=== PATIENT | female | born 1940 | race Caucasian/White ===

== ENCOUNTER → 2023-08-21 06:42 | Outpatient (REF) | payer OTHER, SELFPAY ==
[2023-08-21 07:51] LABS: Blood Urea Nitrogen 18 mg/dl (7-17); Calcium 9.4 mg/dl (8.4-10.2); Carbon Dioxide 29 mmol/L (22-30); Chloride 105 mmol/L (98-107); Glucose 113 mg/dl (70-99); HDL Cholesterol 66 mg/dl; LDL Cholesterol, Calculated 127 mg/dl; Potassium 4.5 mmol/L (3.5-5.1); Sodium 138 mmol/L (135-145); Total Cholesterol 227 mg/dl (50-199); Triglyceride 170 mg/dl (10-149); Very Low Density Lipoprotein 34 mg/dl (0-30); eGFR > 60.00
[2023-08-21 09:27] LABS: Glycohemoglobin (HgbA1c) 6.1 % (4.0-5.6)
== END ==
LOC: REG 06:42
PROVIDERS: ATTENDING PHYSICIAN Emergency Medicine
DX: E78.2 Mixed hyperlipidemia (principal); R73.03 Prediabetes
CPT/HCPCS: 36415; 80048; 80061; 83036

== ENCOUNTER → 2023-10-23 06:52 | Outpatient (REF) | payer OTHER, SELFPAY | LOC: RAD 06:52 | PROVIDERS: ATTENDING PHYSICIAN Emergency Medicine | DX: M99.01 Segmental and somatic dysfunction of cervical region (principal) | CPT/HCPCS: 72050 ==

== ENCOUNTER → 2024-03-04 06:44 | Outpatient (REF) | payer OTHER, SELFPAY ==
[2024-03-04 08:04] LABS: Urine Albumin Negative (Neg - Trace); Urine Bilirubin Negative (Negative); Urine Character Clear (Clear); Urine Color Yellow; Urine Glucose Negative (Negative); Urine Ketone Negative (Negative); Urine Leukocyte 2+ (Negative); Urine Nitrite Negative (Negative); Urine Occult Blood Negative (Negative); Urine Urobilinogen Negative (Neg - 1+)
[2024-03-04 08:15] LABS: % Basophils 0.2 % (0-2); % Eosinophils 3.2 % (0-6); % Immature Granulocytes 0.2 % (0-0.5); % Lymphocytes 32.9 % (20.5-51.1); % Monocytes 9.8 % (1.7-9.3); % Neutrophils 53.7 % (42.2-75.2); Absolute Eosinophils 0.1 10^3/uL (0-0.7); Absolute Lymphocytes 1.3 10^3/uL (1.2-3.4); Absolute Monocytes 0.4 10^3/uL (0.1-0.6); Absolute Neutrophils 2.2 10^3/uL (1.4-6.5); Hematocrit 39.9 % (37.0-47.0); Hemoglobin 13.4 g/dL (12.0-16.0); Mean Corp Hgb Conc. 33.6 g/dL (33.0-37.0); Mean Corpuscular Hgb 31.2 pg (27.0-31.0); Mean Corpuscular Volume 92.8 fL (81.0-99.0); Mean Platelet Volume 10.6 fL (7.4-10.4); Nucleated Red Blood Cells % 0 %; Platelet Count 191 10^3/uL (130-400); Red Cell Dist. Width 13.4 % (11.5-14.5); White Blood Cell Count 4.1 10^3/uL (4.8-10.8)
[2024-03-04 08:34] LABS: Urine Mucus Few; Urine Squamous Cell 21-25 /LPF (Few)
[2024-03-04 08:36] LABS: Urine Bacteria Few (Negative); Urine Red Blood Cell 0-2 /HPF (0-2)
[2024-03-04 08:47] LABS: Glycohemoglobin (HgbA1c) 5.8 % (4.0-5.6)
[2024-03-04 09:16] LABS: TSH Reflex To Free T4 1.77 uIU/ml (0.47-4.68)
[2024-03-04 09:32] LABS: ALT (SGPT) 25 U/L (0-35); AST (SGOT) 30 U/L (14-36); Albumin 4.5 g/dl (3.5-5.0); Alkaline Phosphatase 69 U/L (38-126); Blood Urea Nitrogen 28 mg/dl (7-17); Calcium 9.6 mg/dl (8.4-10.2); Carbon Dioxide 21 mmol/L (22-30); Chloride 104 mmol/L (98-107); Glucose 118 mg/dl (70-99); HDL Cholesterol 60 mg/dl; LDL Cholesterol, Calculated 142 mg/dl; Potassium 4.8 mmol/L (3.5-5.1); Sodium 141 mmol/L (135-145); Total Bilirubin 0.5 mg/dl (0.2-1.3); Total Cholesterol 223 mg/dl (50-199); Total Protein 7.1 g/dl (6.3-8.2); Triglyceride 109 mg/dl (10-149); Very Low Density Lipoprotein 21 mg/dl (0-30); eGFR > 60.00
== END ==
LOC: REG 06:44
PROVIDERS: ATTENDING PHYSICIAN Emergency Medicine
DX: Z00.00 Encounter for general adult medical examination without abnormal findings (principal); R73.03 Prediabetes; M85.89 Other specified disorders of bone density and structure, multiple sites; I10 Essential (primary) hypertension; E78.2 Mixed hyperlipidemia
CPT/HCPCS: 36415; 80053; 80061; 81003; 81015; 83036; 84443; 85025

== ENCOUNTER 2024-03-30 04:18 | Emergency (ER) | payer OTHER, SELFPAY ==
[2024-03-30 04:21] VITALS: BP 187/84; BMI 32.8
[2024-03-30 04:28] VITALS: BP 187/84
--- NOTE | 2024-03-30 04:51 | ED.GENMED ---
History of Present Illness
<LAURA De Anda - Last Filed: 03/30/24 06:44>
General
Chief Complaint: Musculo-Skeletal Complaint
Source: patient
Exam Limitations: none
Time Seen by Provider: 03/30/24 04:30
Nursing documentation reviewed up to this point in time: agreed with
History of Present Illness
History of Present Illness:
Patient is a 83 yo F w/ PMH of cervical spinal stenosis who presents to the ED complaining of upper back pain. Reports pain started yesterday 1-2hrs after PT. Has been in PT for spinal stenosis since December w/o improvement. Reports baseline neck pain
but states this is worse. Describes pain as sharp and rates it 03/21. Reports it is constant and worse w/ movement. Took muscle relaxer w/o relief. Reports pain started to radiate down arms a few hours ago which prompted her to call EMS. L>R. Denies
numbness/tingling and decreased ROM.
Review of Systems
<LAURA De Anda - Last Filed: 03/30/24 06:44>
Review of Systems
Constitutional: Denies fever, fatigue or chills
Respiratory: Denies trouble breathing
Cardiac: Denies chest pain or syncope
ABD/GI: Denies abdominal pain, nausea, vomiting, diarrhea or constipated
: Denies dysuria or urgency
Musculoskeletal: Reports joint pain, muscle pain, muscle stiffness, neck pain and back pain; Denies joint swelling or edema
Neurological: Denies dizzy, headache, weakness or numbness
Phy Exam
<LAURA De Anda - Last Filed: 03/30/24 06:44>
General Physical Exam
General Presentation: mild distress
General age: appears stated age
General Skin: warm
General Mental: alert
Cardiovascular Exam
Cardiovascular Exam: regular rate/rhythm, no edema, no gallop and no murmur
Pulmonary Exam
Pulmonary Exam: lungs clear, no respiratory distress, no rales, no crackles, no rhonchi and no wheezing
Motor
Bilateral upper extremities: 5
Musculoskeletal Exam
Musculoskeletal Exam: other (No tenderness to palpation of neck, upper back, or shoulder. Restricted neck ROM. Painful shoulder ROM. No swelling or erythema noted. )
Course
<LAURA De Anda - Last Filed: 03/30/24 06:44>
Orders/Labs/Results
Orders:
Orders
03/30/24 04:20
EKG [Electrocardiogram (*1)] Urgent
Reason for Study: Chest Pain
Other Reason for Exam: pain in bt shoulder blades radiating to arms
03/30/24 04:21
EKG- Treatment ONCE
03/30/24 05:02
Ketorolac [Toradol] 15 mg IV NOW STA
diazePAM [Valium Injection] 2 mg IV NOW STA
03/30/24 05:11
Basic Metabolic Panel Urgent
Complete Blood Count/With Diff Urgent
Troponin I Urgent
03/30/24 06:03
Ketorolac [Toradol] 15 mg IV NOW STA
diazePAM [Valium Injection] 2 mg IV NOW STA
Abnormal Lab Results
03/30/24
05:11
Absolute Neuts (auto) 7.2 H 10^3/uL
(1.4-6.5)
Absolute Lymphs (auto) 1.1 L 10^3/uL
(1.2-3.4)
Absolute Monos (auto) 0.7 H 10^3/uL
(0.1-0.6)
Neutrophils % 78.9 H %
(42.2-75.2)
Lymphocytes % 12.4 L %
(20.5-51.1)
Glucose 149 H mg/dl
(70-99)
03/30/24 05:11
03/30/24 05:11
Vital Signs
Initial and Last Documented VS:
Initial Vital Signs
Temp Pulse Resp BP Pulse Ox
97.7 F 94 14 187/84 96
03/30/24 04:21 03/30/24 04:21 03/30/24 04:21 03/30/24 04:21 03/30/24 04:21
Last Documented Vital Signs
Temp Pulse Resp BP Pulse Ox
97.7 F 89 23 162/85 96
03/30/24 04:21 03/30/24 06:30 03/30/24 06:30 03/30/24 06:30 03/30/24 04:21
<Yesenia Morel, DO - Last Filed: 03/30/24 06:36>
Orders/Labs/Results
Orders:
Orders
03/30/24 04:20
EKG [Electrocardiogram (*1)] Urgent
Reason for Study: Chest Pain
Other Reason for Exam: pain in bt shoulder blades radiating to arms
03/30/24 04:21
EKG- Treatment ONCE
03/30/24 05:02
Ketorolac [Toradol] 15 mg IV NOW STA
diazePAM [Valium Injection] 2 mg IV NOW STA
03/30/24 05:11
Basic Metabolic Panel Urgent
Complete Blood Count/With Diff Urgent
Troponin I Urgent
03/30/24 06:03
Ketorolac [Toradol] 15 mg IV NOW STA
diazePAM [Valium Injection] 2 mg IV NOW STA
Abnormal Lab Results
03/30/24
05:11
Absolute Neuts (auto) 7.2 H 10^3/uL
(1.4-6.5)
Absolute Lymphs (auto) 1.1 L 10^3/uL
(1.2-3.4)
Absolute Monos (auto) 0.7 H 10^3/uL
(0.1-0.6)
Neutrophils % 78.9 H %
(42.2-75.2)
Lymphocytes % 12.4 L %
(20.5-51.1)
Glucose 149 H mg/dl
(70-99)
03/30/24 05:11
03/30/24 05:11
Vital Signs
Initial and Last Documented VS:
Initial Vital Signs
Temp Pulse Resp BP Pulse Ox
97.7 F 94 14 187/84 96
03/30/24 04:21 03/30/24 04:21 03/30/24 04:21 03/30/24 04:21 03/30/24 04:21
Last Documented Vital Signs
Temp Pulse Resp BP Pulse Ox
97.7 F 89 23 162/85 96
03/30/24 04:21 03/30/24 06:30 03/30/24 06:30 03/30/24 06:30 03/30/24 04:21
<Yesenia Morel DO - Last Filed: 03/30/24 06:36>
*Pulse Oximetry
Patient hypoxic: no
*EKG
Interpreted by ED Provider?: Yes
Interpretation: normal
Comparison EKG: no changes (Unchanged from previous September 2020)
Rate: normal
Rhythm: sinus
Denhoff: normal axis
Interval: normal interval
QRS Pattern: normal QRS
Ischemia: no ischemia
*Steam Presser Interpretation
Rate: normal
Interpretation: normal
Rhythm: sinus
*Critical Care Note
Total Time (30-74mins, 75-104mins- exclusive of procedures): Not Applicable
<LAURA De Anda - Last Filed: 03/30/24 06:44>
Update Note
Update Note:
03/30/24 5:50 am - Pt reports feeling 30-40% better. She is able to relax w/o pain at rest but continues to have pain w/ movement.
ED Attending Note
<LAURA De Anda - Last Filed: 03/30/24 06:44>
-
Portions of this chart may have been created with voice recognition software.� Occasional wrong word or��sound alike� substitutions may have occurred due to the inherent limitations of voice recognition software.
<Yeseina Morel DO - Last Filed: 03/30/24 06:36>
ED Attending Note
Patient seen and examined by attending physician: Yes
I performed the substantive portion of visit, reviewed & personally made and approve the management plan that is documented in note by myself or HIRA.: Yes
ED Attending Note:
This is an 83-year-old woman with history of hypertension, GERD, cervical disc disease with chronic posterior neck pain for which she follows with physical therapy over the past several months. She was feeling well after her last physical therapy
treatment yesterday morning but then developed some upper back ache that began yesterday afternoon, persistent and worsening throughout the evening with now intermittent radiation of pain down her arms. She denies chest pain, no weakness or
numbness, no headache, no fever no chills. Upper back pain radiates to her posterior neck but feels different from her usual posterior neck pain.
She followed up with her orthopedist last week and was prescribed tizanidine which she has been taking throughout the week without relief. She does take ibuprofen as well as Tylenol generally twice per day with last dose yesterday afternoon.
She has not had a fall, no shortness of breath. Pain is worse with movement of her head/movement of her neck and worse with raising her arms. Improves with sitting/lying still.
GENERAL: 83-year-old woman appears younger than stated age, bright and alert, pleasant, appears in no acute distress. Lying near sitting up on stretcher, holding head in neutral position, resistant to move. Her son is accompanying.
EYE: pupils equal and reactive. anicteric
NECK: Supple, no midline bony tenderness, moderate tenderness lower paracervical region left greater than right with moderate palpable muscle spasm more so left than right. Markedly limited cervical range of motion especially bilateral rotation,
flexion related to pain. No meningismus, no significant adenopathy.
ENT: oral mucosa is moist. No rhinorrhea.
CARDIAC: Regular rate and rhythm. no murmur.
LUNGS: Clear breath sounds bilaterally, no acute respiratory distress, no wheezes/rales/rhonchi
ABDOMEN: Soft, nondistended, without focal tenderness, no r/g, no cvat. normoactive BS.
BACK: No midline bony tenderness. There is moderate tenderness and palpable muscular ropiness left superior trapezius as well as tenderness along the left rhomboid musculature. Palpation seems to exactly reproduce patient's pain complaint.
NEUROLOGICAL: Alert and oriented x3, no focal neuro deficits. Motor strength is 5/5 bilaterally. Gross sensation is intact.
SKIN: Warm and dry, normal color, skin intact. No rash.
MUSCULOSKELETAL: No C/C/E. peripheral pulses are full and equal b/l. No palpable tenderness.
PSYCH: Normal and appropriate interaction.
History and exam most consistent with musculoskeletal upper back pain with palpable muscle spasm of distal cervical, left trapezius and left rhomboid musculature.
Complains of radiation of pain to her arms but no focal neurodeficits.
Must consider ACS thus will check EKG and will check labs, troponin.
Patient mitts to slow onset of pain, exacerbated with movement, not consistent with aortic dissection, PE, pneumonia.
Will give an IV dose of Toradol and Valium.
At this point no indication for radiologic studies.
03/30/2024 0612 AM
Patient feeling moderately improved after a small IV dose of Toradol and Valium. Has improvement in cervical range of motion as well as improvement in left shoulder range of motion.
EKG is unremarkable as is laboratory studies. Normal troponin.
Will repeat dose of Toradol and Valium and continue to observe.
I suspect acute on chronic cervical pain with left trapezius myofasciitis.
03/30/2024 0635 AM
Patient continues with improvement in pain. Resting comfortably.
Will discharge to home with a prescription for short course of Celebrex to be taken instead of Advil and will add a short course of Valium to be taken at bedtime for as needed muscle spasm.
Recommend prompt follow-up with PCP as well as orthopedist and continue with physical therapy.
Discussed home remedies, local heat, rest, gentle stretching exercises.
Return precautions discussed.
Discharge Plan
Departure
Patient Disposition: Home (Routine Discharge)
Date of Disposition: 03/30/24
Time of Disposition: 06:30
Patient with high blood pressure during this ER visit?: No
Condition: Good
Discharge Problem:
acute exacerbation of cervical stenosis, acute on chronic neck pain, acute left trapezius myofascitis
Instructions: Chronic Neck Pain (DC), Radiculopathy of the neck and back (including sciatica), Neck Pain Exercises
Prescriptions:
New
celecoxib [Celebrex] 200 mg capsule
200 mg PO BID PRN (Reason: neck pain) Qty: 30 0RF
Rx Instructions:
do not take advil while taking celebrex
diazepam [Valium] 2 mg tablet
2 mg PO HS PRN (Reason: muscle spasm) Qty: 7 0RF
No Action
mfkohjcu-loy-EW-lycopen-lutein [Centrum Silver] 1 EACH tablet
2 tab PO DAILY
cholecalciferol (vitamin D3) [Vitamin D3] 50 MCG capsule
50 mcg PO DAILY
lutein 20 MG tablet
20 mg PO DAILY
Caltrate 600 + D Tablet
2 tab PO DAILY
oxycodone 5 MG tablet
5 mg PO Q6HPRN PRN (Reason: moderate-severe pain) Qty: 30 0RF
Rx Instructions:
1 tab moderate pain or 2 if pain severe
Dx total joint replacement
ongoing therapy
celecoxib 200 MG capsule
200 mg PO DAILY Qty: 30 0RF
Rx Instructions:
Take with food.
Do not take within 2 hours of Aspirin.
ondansetron HCl 4 MG tablet
4 mg PO Q6HPRN PRN (Reason: nausea) Qty: 20 0RF
Rx Instructions:
Take 1/2 hour prior to Oxycodone for recurrent nausea
famotidine 20 MG tablet
20 mg PO HS Qty: 30 0RF
Rx Instructions:
Take nightly while on Celebrex post-op.
mupirocin 1 APPLIC ointment
1 applic intranasal BID Qty: 1 0RF
Patient Comments:
started monday bid, last dose 5/2 pm
Rx Instructions:
Has prescription from prior [facility] in 02/2020
amlodipine 5 MG tablet
5 mg PO DAILY Qty: 30 1RF
Rx Instructions:
Hold if systolic blood pressure <130 while on Oxycodone.
turmeric 400 MG capsule
800 mg PO DAILY Qty: 0 0RF
Rx Instructions:
Resume in 1 week.
Arelis 1 CAP Capsule
2 cap PO DAILY Qty: 0 0RF
Rx Instructions:
Resume in 1 week.
docusate sodium 100 MG capsule
100 mg PO BID Qty: 30 0RF
sennosides [senna] 8.6 MG tablet
8.6 mg PO BID Qty: 30 0RF
acetaminophen 500 MG tablet
1,000 mg PO Q6H Qty: 60 0RF
Rx Instructions:
Do not exceed >4000 mg daily.
aspirin 325 MG tablet
325 mg PO DAILY Qty: 28 0RF
Rx Instructions:
Take daily x4 weeks for blood clot prevention.
Referrals:
Reena Najera MD [Active] - Call in 1-3 days for appt
PRIVATE,PHYSICIAN [Family Provider] - Call in 1-3 days for appt
Interventions
Interventions:
*Risk Screen - Suicide Last Done: 03/30/24 04:21
*General Assessment Last Done: 03/30/24 04:21
*Neglect/Abuse Screening Last Done: 03/30/24 04:21
*ED COVID-19 Vaccine History Last Done: 03/30/24 04:21
ED-Musculoskeletal Assessment Last Done: 03/30/24 05:00
Discharge Date and Time
Print Language: NIUEAN
[2024-03-30 05:00] VITALS: BP 187/73
[2024-03-30] MEDS: VALIUM INJECTION 2 MG IV ×2 (05:10→06:06)
[2024-03-30] MEDS: TORADOL 15 MG IV ×2 (05:10→06:06)
[2024-03-30 05:21] LABS: % Basophils 0.2 % (0-2); % Eosinophils 0.5 % (0-6); % Immature Granulocytes 0.4 % (0-0.5); % Lymphocytes 12.4 % (20.5-51.1); % Monocytes 7.6 % (1.7-9.3); % Neutrophils 78.9 % (42.2-75.2); Absolute Eosinophils 0.1 10^3/uL (0-0.7); Absolute Lymphocytes 1.1 10^3/uL (1.2-3.4); Absolute Monocytes 0.7 10^3/uL (0.1-0.6); Absolute Neutrophils 7.2 10^3/uL (1.4-6.5); Hematocrit 38.3 % (37.0-47.0); Hemoglobin 12.8 g/dL (12.0-16.0); Mean Corp Hgb Conc. 33.4 g/dL (33.0-37.0); Mean Corpuscular Volume 89.9 fL (81.0-99.0); Mean Platelet Volume 10.3 fL (7.4-10.4); Nucleated Red Blood Cells % 0 %; Platelet Count 194 10^3/uL (130-400); Red Blood Cell Count 4.26 10^6/uL (4.20-5.40); Red Cell Dist. Width 12.7 % (11.5-14.5); White Blood Cell Count 9.2 10^3/uL (4.8-10.8)
[2024-03-30 05:38] LABS: Blood Urea Nitrogen 16 mg/dl (7-17); Calcium 9.3 mg/dl (8.4-10.2); Carbon Dioxide 26 mmol/L (22-30); Chloride 98 mmol/L (98-107); Estimated Creatinine Clearance 78 ml/min; Glucose 149 mg/dl (70-99); Potassium 4.4 mmol/L (3.5-5.1); Sodium 136 mmol/L (135-145); eGFR > 60.00
[2024-03-30 05:49] LABS: Troponin I < 0.012 ng/ml
[2024-03-30 06:00] VITALS: BP 171/78
[2024-03-30 06:30] VITALS: BP 162/85
== END 2024-03-30 07:01 | disposition home or self-care (01) ==
LOC: EMR 04:18
PROVIDERS: EMERGENCY PHYSICIAN Emergency Medicine
DX: M48.02 Spinal stenosis, cervical region (principal); G89.29 Other chronic pain; M60.9 Myositis, unspecified; I10 Essential (primary) hypertension; K21.9 Gastro-esophageal reflux disease without esophagitis
CPT/HCPCS: 96374; 96375; 96376; 99284; 80048; 84484; 85025; 93005

== ENCOUNTER → 2024-06-27 06:57 | Outpatient (REF) | payer OTHER, SELFPAY ==
[2024-06-27 08:12] LABS: % Basophils 0.2 % (0-2); % Eosinophils 3.5 % (0-6); % Immature Granulocytes 0.4 % (0-0.5); % Lymphocytes 28.8 % (20.5-51.1); % Monocytes 8.1 % (1.7-9.3); Absolute Eosinophils 0.2 10^3/uL (0-0.7); Absolute Lymphocytes 1.3 10^3/uL (1.2-3.4); Absolute Monocytes 0.4 10^3/uL (0.1-0.6); Absolute Neutrophils 2.7 10^3/uL (1.4-6.5); Hematocrit 40.7 % (37.0-47.0); Hemoglobin 13.5 g/dL (12.0-16.0); Mean Corp Hgb Conc. 33.2 g/dL (33.0-37.0); Mean Corpuscular Hgb 30.4 pg (27.0-31.0); Mean Corpuscular Volume 91.7 fL (81.0-99.0); Mean Platelet Volume 10.4 fL (7.4-10.4); Nucleated Red Blood Cells % 0 %; Platelet Count 193 10^3/uL (130-400); Red Blood Cell Count 4.44 10^6/uL (4.20-5.40); Red Cell Dist. Width 13.2 % (11.5-14.5); White Blood Cell Count 4.6 10^3/uL (4.8-10.8)
[2024-06-27 08:51] LABS: Glycohemoglobin (HgbA1c) 5.9 % (4.0-5.6)
[2024-06-27 09:07] LABS: ALT (SGPT) 21 U/L (0-35); AST (SGOT) 28 U/L (14-36); Albumin 4.3 g/dl (3.5-5.0); Alkaline Phosphatase 84 U/L (38-126); Blood Urea Nitrogen 23 mg/dl (7-17); Calcium 9.2 mg/dl (8.4-10.2); Carbon Dioxide 27 mmol/L (22-30); Chloride 101 mmol/L (98-107); Glucose 105 mg/dl (70-99); HDL Cholesterol 62 mg/dl; LDL Cholesterol, Calculated 137 mg/dl; Potassium 4.5 mmol/L (3.5-5.1); Sodium 139 mmol/L (135-145); Total Bilirubin 0.8 mg/dl (0.2-1.3); Total Cholesterol 226 mg/dl (50-199); Total Protein 7.2 g/dl (6.3-8.2); Triglyceride 135 mg/dl (10-149); Very Low Density Lipoprotein 27 mg/dl (0-30); eGFR > 60.00
== END ==
LOC: REG 06:57
PROVIDERS: ATTENDING PHYSICIAN Emergency Medicine
DX: R73.03 Prediabetes (principal); I10 Essential (primary) hypertension; E78.2 Mixed hyperlipidemia
CPT/HCPCS: 36415; 80053; 80061; 83036; 85025

== ENCOUNTER → 2024-09-18 11:06 | Outpatient (REF) | payer OTHER, SELFPAY | LOC: RAD 11:06 | PROVIDERS: ATTENDING PHYSICIAN Neurological Surgery; FAMILY PHYSICIAN Emergency Medicine | DX: M47.812 Spondylosis without myelopathy or radiculopathy, cervical region (principal) | CPT/HCPCS: 72125 ==

== ENCOUNTER → 2025-05-29 06:42 | Outpatient (REF) | payer OTHER, SELFPAY ==
[2025-05-29 07:49] LABS: Hematocrit 39.7 % (37.0-47.0); Hemoglobin 13.3 g/dL (12.0-16.0); Mean Corp Hgb Conc. 33.5 g/dL (33.0-37.0); Mean Corpuscular Volume 89.6 fL (81.0-99.0); Platelet Count 210 10^3/uL (130-400); Red Cell Dist. Width 13.3 % (11.5-14.5)
[2025-05-29 08:00] LABS: ALT (SGPT) 26 U/L (0-35); AST (SGOT) 31 U/L (14-36); Albumin 4.4 g/dl (3.5-5.0); Alkaline Phosphatase 83 U/L (38-126); Blood Urea Nitrogen 17 mg/dl (7-17); Calcium 9.2 mg/dl (8.4-10.2); Carbon Dioxide 25 mmol/L (22-30); Chloride 105 mmol/L (98-107); Glucose 108 mg/dl (70-99); HDL Cholesterol 65 mg/dl; LDL Cholesterol, Calculated 126 mg/dl; Potassium 4.5 mmol/L (3.5-5.1); Sodium 137 mmol/L (135-145); Total Protein 7.3 g/dl (6.3-8.2); Very Low Density Lipoprotein 16 mg/dl (0-30); eGFR > 60.00
[2025-05-29 08:13] LABS: Vitamin D, 25-OH*** 59.2 ng/mL (30-80)
[2025-05-29 09:18] LABS: Glycohemoglobin (HgbA1c) 6.0 % (4.0-5.9)
== END ==
LOC: REG 06:42
PROVIDERS: ATTENDING PHYSICIAN Nurse Practitioner Family
DX: E78.2 Mixed hyperlipidemia (principal); R73.03 Prediabetes; Z13.29 Encounter for screening for other suspected endocrine disorder; Z13.21 Encounter for screening for nutritional disorder
CPT/HCPCS: 36415; 80053; 80061; 82306; 82652; 83036; 84443; 85027